=== PATIENT | female | born 2000 | race Caucasian/White ===

== ENCOUNTER 2024-11-30 07:32 | Inpatient (IN) | payer OTHER, SELFPAY ==
[2024-11-30] VITALS (13 sets, daily range): BP systolic 122–144; BP diastolic 67–96; PULSE 81–117; RESP 14–18; TEMP 36.4–36.8; O2SAT 99; BMI 42.4
[2024-11-30 08:59] LABS: Absolute Lymphocyte Count 2.07 X10^3/uL (0.83-4.51); Basophil# 0.02 X10^3/uL; Basophil% 0.2 % (0-1); Eosinophil# 0.06 X10^3/uL; Eosinophils% 0.6 % (0-5); Hematocrit 35.7 % (37-47); Hemoglobin 12.5 g/dL (12.0-15.0); Lymphocyte # 2.07 X10^3/ul (0.83-4.51); Lymphocyte % 20.9 % (19-41); Mean Corpuscular Hgb 30.3 pg (27.0-32.0); Mean Corpuscular Volume 86.4 fL (81-99); Mean Platelet Vol. 9.3 fl (6.2-12.0); Monocyte# 0.69 X10^3/uL; NRBC Flagged by Analyzer 0 % (0-5); Neutrophil # 7.01 X10^3/uL (2.7-7.7); Neutrophil % 70.9 % (47-70); Platelet Count 303 K/mm3 (150-450); RBC Distribution Width CV 12.7 % (11.6-14.6); RBC Distribution Width SD 39.8 fl (35.1-43.9); Red Blood Count 4.13 M/mm3 (4.2-5.4); White Blood Count 9.9 K/mm3 (4.4-11.0)
[2024-11-30] MEDS: 0.9% Saline Lock 10 ML Syringe IV ×2 (09:03→16:38)
[2024-11-30] MEDS: miSOPROStol 25 MCG TABLET VAGINAL ×2 (09:03→13:02)
[2024-11-30 09:35] LABS: ALB/GLOB Ratio 2.1 RATIO (0.9-2.4); AST(SGOT) 20 U/L (<=31); Alanine Aminotransfer ALT/SGPT 17 U/L (<=34); Albumin, Serum 3.4 g/dL (3.5-5.0); Alkaline Phosphatase 182 U/L (35-104); Anion Gap 14 (5-15); BUN 4 mg/dL (4-19); Calcium,Total 8.9 mg/dL (7.6-11.0); Carbon Dioxide 17.3 mmol/L (21.0-32.0); Chloride 106 mmol/L (98-108); Creatinine, Serum 0.48 mg/dL (0.70-1.20); EST Glomerular Filtration Rate 136 (>60); Estimated Creatinine Clearance 231.59 ml/min (50-250); Globulin 1.6 g/dL (2.2-4.2); Glucose 88 mg/dL (70-99); Potassium 3.8 mmol/L (3.3-5.1); Sodium Level 137 mmol/L (133-145); Total Bilirubin 0.35 mg/dL (0.00-1.30)
[2024-11-30 09:41] LABS: Syphilis Antibodies Nonreactive (Nonreactive)
--- NOTE | 2024-11-30 13:11 | PCM.HP.OB ---
HPI - General General Date of Admission: 11/30/24 HPI Narrative CAESAR RUSS, is a 24 F who presents for induction. Maternal Data Information RICHAR Calculator Estimated Delivery Date Method Current WG Current Estimate 12/06/24 Manual 39w 1d [facility] Medical History (Updated 11/30/24 @ 13:[address] Nadine Higuera MD) Obesity macrosomia Anxiety Home Medications ?Medication ?Instructions ?Recorded ?Last Taken ?Type aspirin 81 mg tablet,delayed 81 mg PO DAILY 11/30/24 11/29/24 07:00 History release 81 mg prenat.vits,skip,ysw-rdxv-verus 1 tab PO DAILY 11/30/24 11/29/24 07:00 History 1 TAB Allergy/AdvReac Type Severity Reaction Status Date / Time No Known Allergies Allergy Verified 11/30/24 07:51 Surgical History History of surgery Social History Smoking Status: Never smoker History Elective abortions Hx Para 0 Spontaneous abortions Hx # Term Pregnancies Ectopic pregnancies Hx # Pregnancies Multiple births # of living children Vital Signs Vital Signs Vital Signs: 11/30/24 07:43 11/30/24 07:43 11/30/24 07:43 Temperature Temperature Source Temporal Pulse Rate 93 Respiratory Rate Blood Pressure 143/92 H BP Systolic 143 BP Diastolic 92 11/30/24 07:43 11/30/24 07:43 11/30/24 07:58 Temperature 98.3 F Temperature Source Pulse Rate Respiratory Rate 18 Blood Pressure 142/91 H BP Systolic 142 BP Diastolic 91 11/30/24 07:58 11/30/24 10:20 11/30/24 10:20 Temperature Temperature Source Pulse Rate 85 81 Respiratory Rate Blood Pressure 127/67 H BP Systolic 127 BP Diastolic 67 11/30/24 10:20 11/30/24 10:20 11/30/24 10:20 Temperature 97.6 F L Temperature Source Temporal Pulse Rate Respiratory Rate 16 Blood Pressure BP Systolic BP Diastolic 11/30/24 12:30 11/30/24 12:30 11/30/24 12:30 Temperature 98.2 F Temperature Source Temporal Pulse Rate Respiratory Rate 16 Blood Pressure BP Systolic BP Diastolic 11/30/24 12:44 11/30/24 12:44 Temperature Temperature Source Pulse Rate 96 Respiratory Rate Blood Pressure 142/96 H BP Systolic 142 BP Diastolic 96 Weight Weight: 255 lb 1.197 oz Body Mass Index (BMI) 42.4 Physical Exam Const alert and oriented x3 GI soft to palpation, non-tender and non-distended Inspection: gravid external exam normal Narrative: cvx - 50/-2 Labs Labs Labs: Blood Type A NEGATIVE Antibody Screen NEGATIVE Hct 35.7 % (37-47) L Hgb 12.5 g/dL (12.0-15.0) Syphilis Total Ab Nonreactive (Nonreactive) Assessment & Plan (1) LGA (large for gestational age) fetus: COMMENT: @ 39&1 PLAN: Plan Admit to L&D. Induction - cytotec and then plan for intracervical allred. EFW - LGA but EFW less than 4500g. Recent US reviewed. Patient with adequate pelvis. Polyhydramnios - plan for controled AROM. Pain - epidural as desired. GBS negative. Routine care.
[2024-11-30] MEDS: Lactated Ringers 1,000 ML 50 ML IV (16:38)
[2024-11-30] MEDS: 0.9% Normal Saline Single 100 ML IV.SOLN. INTRA-UTER (17:06)
--- NOTE | 2024-11-30 17:43 | PCM.PN.OB ---
Subjective Subjective Patient feeling some cramps. Objective Data Objective Data Vital Signs: Vital Signs Temp Pulse Resp BP 98.1 F 91 18 144/85 H 11/30/24 16:02 11/30/24 16:02 11/30/24 16:02 11/30/24 16:02 Weight: 255 lb 1.197 oz Body Mass Index (BMI) 42.4 Lab / Micro Data 11/30/24 08:25 11/30/24 08:25 Labs: Laboratory Results - last 24 hr 11/30/24 08:25: WBC 9.9, RBC 4.13 L, Hgb 12.5, Hct 35.7 L, MCV 86.4, MCH 30.3, MCHC 35.0, RDW Std Deviation 39.8, RDW Coeff of Maggie 12.7, Plt Count 303, MPV 9.3, Immature Gran % (Auto) 0.400, Neut % (Auto) 70.9 H, Lymph % (Auto) 20.9, [place] % (Auto) 7.0, Eos % (Auto) 0.6, Baso % (Auto) 0.2, Absolute Neuts (auto) 7.0, Absolute Lymphs (auto) 2.07, Nucleated RBC % 0, Sodium 137, Potassium 3.8, Chloride 106, Carbon Dioxide 17.3 L, Anion Gap 14, BUN 4, Creatinine 0.48 L, Estim Creat Clear Calc 231.59, Est GFR (MDRD) Non-Af 136, BUN/Creatinine Ratio 9.0 L, Glucose 88, Calcium 8.9, Total Bilirubin 0.35, AST 20, ALT 17, Alkaline Phosphatase 182 H, Total Protein 5.0 L, Albumin 3.4 L, Globulin 1.6 L, Albumin/Globulin Ratio 2.1, Syphilis Total Ab Nonreactive, Blood Type A NEGATIVE, Antibody Screen NEGATIVE Physical Exam Const alert, oriented x3 and no apparent distress Narrative: cvx - 2/70/-2, intracervical allred placed NST FHR Rate Baby A Baseline: 135 Variability:: Moderate Accelerations:: 15 x 15 Decelerations:: Variable Uterine Activity:: Irregular Assessment & Plan (1) LGA (large for gestational age) fetus: COMMENT: @ 39&1 (2) Polyhydramnios: QUALIFIERS: Fetus number: single or unspecified fetus Trimester: third trimester Qualified Code(s): O40.3XX0 - Polyhydramnios, third trimester, not applicable or unspecified PLAN: Plan Plan to start pitocin at 6pm
[2024-11-30] MEDS: Oxytocin 15 Units/NS 250ml 15 UNITS/250 ML IV.SOLN 2 UNITS IV (18:21)
[2024-12-01] VITALS (56 sets, daily range): BP systolic 60–147; BP diastolic 47–93; PULSE 94–139; RESP 14–20; TEMP 36.2–38; O2SAT 82–100
[2024-12-01] MEDS: Lactated Ringers 1,000 ML 999 ML IV ×2 (00:48→17:30)
[2024-12-01] MEDS: fentaNYL-bupivacaine (epidural) 100 ML BAG EPIDURAL ×3 (01:58→11:07)
[2024-12-01] MEDS: Lactated Ringers 1,000 ML 200 ML IV ×2 (04:21→08:21)
--- NOTE | 2024-12-01 04:47 | PN.OBGYN_ITS ---
Subjective Subjective Resting in bed, comfortable with epidural. Partner at bedside. Objective Data Objective Data Vital Signs: Vital Signs Temp Pulse Resp BP Pulse Ox 98.8 F 116 H 14 124/75 H 98 12/01/24 04:24 12/01/24 04:24 12/01/24 04:24 12/01/24 04:24 12/01/24 03:32 Weight: 255 lb 1.197 oz Body Mass Index (BMI) 42.4 Intake & Output: Intake and Output for Last 24 Hours 11/29/24 11/30/24 12/01/24 23:59 23:59 23:59 Intake Total 1.07 / 1.07 Balance 1.07 / 1.07 Lab / Micro Data 11/30/24 08:25 11/30/24 08:25 Labs: Laboratory Results - last 24 hr 11/30/24 08:25: WBC 9.9, RBC 4.13 L, Hgb 12.5, Hct 35.7 L, MCV 86.4, MCH 30.3, MCHC 35.0, RDW Std Deviation 39.8, RDW Coeff of Maggie 12.7, Plt Count 303, MPV 9.3, Immature Gran % (Auto) 0.400, Neut % (Auto) 70.9 H, Lymph % (Auto) 20.9, [place] % (Auto) 7.0, Eos % (Auto) 0.6, Baso % (Auto) 0.2, Absolute Neuts (auto) 7.0, Absolute Lymphs (auto) 2.07, Nucleated RBC % 0, Sodium 137, Potassium 3.8, Chloride 106, Carbon Dioxide 17.3 L, Anion Gap 14, BUN 4, Creatinine 0.48 L, Estim Creat Clear Calc 231.59, Est GFR (MDRD) Non-Af 136, BUN/Creatinine Ratio 9.0 L, Glucose 88, Calcium 8.9, Total Bilirubin 0.35, AST 20, ALT 17, Alkaline Phosphatase 182 H, Total Protein 5.0 L, Albumin 3.4 L, Globulin 1.6 L, Albumin/Globulin Ratio 2.1, Syphilis Total Ab Nonreactive, Blood Type A NEGATIVE, Antibody Screen NEGATIVE Physical Exam Manual OB Exam: estimated gestational size large, presentation cephalic, dilated 5.5, effaced 80 and station -2 NST FHR Rate Baby A Baseline: 150 Variability:: Moderate Accelerations:: 15 x 15 Decelerations:: Variable FHR Category:: Category II Uterine Activity:: Every 2-3, moderate Assessment & Plan (1) Encounter for induction of labor: PLAN: Plan 1) Continue with active management, pitocin per protocol 2) Continuous EFM 3) Epidural for pain management 4) SROM 5) Positional changes
[2024-12-01] MEDS: Ondansetron 4 MG/2 ML Vial IV (05:32)
[2024-12-01] MEDS: Acetaminophen 500 MG Tablet 1000 MG PO ×2 (14:10→18:06)
[2024-12-01] MEDS: Sodium Citrate/Citric Acid 30 ML UDC PO (14:12)
--- NOTE | 2024-12-01 14:25 | EX.PCM.OBRPT ---
Maternal Data Information RICHAR Calculator Estimated Delivery Date Method Current WG Current Estimate 12/06/24 Manual 39w 3d Operative Report (OB) Details Procedure Type: low transverse Date of Procedure: 12/01/24 Procedure Start Time: 14:50 Procedure Stop Time: 15:49 Pre-Operative Diagnosis: Failure of Descent Post-Operative Diagnosis: Same as Pre-operative diagnosis Classification: BONNIE Type of Anesthesia: Epidural Antibiotic Given: Ancef 2 grams IV x1 and Zithromax 500 mg/5 mL X1 Drain: Shepherd to straight drain Estimated Blood Loss: 1000ml Fluids Replaced: 1300ml Findings Description of surgery: Patient was induced and began pushing once complete. She pushed effectively for 3 hours with no descent. Patient was counseled on continued pushing for another hour versus proceeding with a section. After shared decision making with patient the plan was to proceed with a primary . Fetus is LGA per recent growth US which supports this decision. The patient was taken to the operating room where epidural anesthesia was dosed. It was not found to be adequate for local 1% lidocaine (10ml) was injection along the incision. She was prepped and draped in the dorsal supine position with a leftward tilt. A Pfannenstiel skin incision was made approximately 2 cm above the symphysis pubis and carried through to the underlying fascia with the scalpel. The fascia was incised incised in the midline and extended laterally with the Durand scissors. The rectus muscles were in the midline and the peritoneum was entered carefully and bluntly. The peritoneal incision was stretched and the bladder blade was inserted. Vesicouterine peritoneum was tented up, incised & then bladder flap created gently. The uterine incision was made in a low transverse fashion with the scalpel and extended superiorly and inferiorly with blunt dissection. The infant's head was grasped and unable to be elevated to the uterine incision. RN elevated head vaginally and still head unable to be elevated to the uterine incision. I went to the other side of the OR table and grasped the infant's head and then was able to bring the head to the incision in the flexed position. The head was gently guided to allow delivery of the anterior and posterior shoulders. The body then delivered with fundal pressure in the standard fashion. The 3VC cord was clamped and cut. The was handed off to the waiting pediatric occupational therapist. The placenta was delivered with fundal massage and gentle traction in the standard fashion. The uterus was exteriorized and cleared of clots and debris. A midline uterine extension was repaired in running locked fashion using #1 Vicryl suture. The uterine incision was then closed with #1 Vicryl suture in a running locked fashion. Monocryl suture was used in an imbricating fashion. The incision was examined and was found to be hemostatic. The bladder was backfilled with 240ml saline with methylene blue which confirmed bladder integrity. The uterus was returned to the abdominal cavity. After irrigating Liseth was placed over the uterine incision as some areas were denuded (but hemostatic). The rectus muscle was examined and any bleeding was Bovie cauterized. The fascia was closed with PDS suture in a running standard fashion. The subcutaneous tissue was examining and any bleeding was Bovie cauterized. The subcutaneous tissue was reapproximated with interrupted sutures. The skin was closed in a subcuticular fashion by the SNUFF MAKER while I was present in the OR. The remainder of the procedure was performed by me with assistance. Surgical findings: normal maternal uterus and adnexa Presentation: Vertex Amniotic Membrane Rupture Type: Spontaneous Amniotic Fluid Description: Clear Placental Delivery Description: Expressed Placenta Disposition: [facility] Specimen collected: No Cord Vessel Description: 3 Vessels Cord Entanglement: None Infant A gender: Female (1 minute): 1 (5 minute): 6 (9 at 10 minutes) Delayed Cord Clamping: No Bd Special Education Teacher director post: Yes Electric Installer: iLz Muir Tasks completed by wheelchair van operator first responder: Opening & closing and Retracting Additional magistrate assistant?: No Complications Complications: No
[2024-12-01] MEDS: Cefazolin 2 GM in 0.9% Normal Saline (100mL Bag) 100 ML IV (14:35)
[2024-12-01] MEDS: Azithromycin 500 MG in 0.9% Normal Saline (250mL Bag) 250 ML 255 MG IV (14:35)
[2024-12-01] MEDS: Cefazolin 2 GM in Syringe 10 ML IV (14:50)
[2024-12-01] MEDS: Ketorolac 30 MG/ML Syringe IV ×2 (16:42→22:26)
[2024-12-01] MEDS: Oxytocin 15 Units/NS 250ml 15 UNITS/250 ML IV.SOLN 83 UNITS IV (16:42)
[2024-12-01 17:58] LABS: Absolute Neutrophil Count 13.6 X10^3/uL (2.0-7.7); Basophil# 0.03 X10^3/uL; Basophil% 0.2 % (0-1); Hematocrit 28.9 % (37-47); Lymphocyte % 6.3 % (19-41); Mean Corp Hgb Conc 34.6 g/dL (32-36); Mean Corpuscular Hgb 30.1 pg (27.0-32.0); Mean Platelet Vol. 9.3 fl (6.2-12.0); Monocyte# 1.25 X10^3/uL; Monocyte% 7.8 % (0-10); NRBC Flagged by Analyzer 0 % (0-5); Neutrophil # 13.61 X10^3/uL (2.7-7.7); Neutrophil % 85.3 % (47-70); POSITIVE MORPHOLOGY YES; Platelet Count 326 K/mm3 (150-450); RBC Distribution Width CV 13.2 % (11.6-14.6); RBC Distribution Width SD 41.6 fl (35.1-43.9); Red Blood Count 3.32 M/mm3 (4.2-5.4)
[2024-12-01 18:06] LABS: Differential Indicated SCAN CRITERIA MET
[2024-12-01] MEDS: HYDROmorphone 1 MG/ML Syringe IV ×2 (18:06→23:24)
[2024-12-01 18:15] LABS: ALB/GLOB Ratio 1.3 RATIO (0.9-2.4); AST(SGOT) 22 U/L (<=31); Alanine Aminotransfer ALT/SGPT 9 U/L (<=34); Albumin, Serum 2.6 g/dL (3.5-5.0); Alkaline Phosphatase 138 U/L (35-104); Anion Gap 13 (5-15); BUN 8 mg/dL (4-19); BUN/Creat Ratio 10.3 RATIO (10-20); Calcium,Total 7.9 mg/dL (7.6-11.0); Carbon Dioxide 16.5 mmol/L (21.0-32.0); Chloride 109 mmol/L (98-108); Creatinine, Serum 0.79 mg/dL (0.70-1.20); EST Glomerular Filtration Rate 109 (>60); Estimated Creatinine Clearance 140.71 ml/min (50-250); Glucose 105 mg/dL (70-99); Potassium 3.9 mmol/L (3.3-5.1); Protein, Total 4.6 g/dL (5.9-8.4); Sodium Level 139 mmol/L (133-145); Total Bilirubin 1.04 mg/dL (0.00-1.30)
[2024-12-01] MEDS: Lactated Ringers 1,000 ML 100 ML IV (22:26)
[2024-12-01] MEDS: Enoxaparin 40 MG/0.4 ML Syringe SC (22:26)
[2024-12-02] VITALS (7 sets, daily range): BP systolic 102–131; BP diastolic 62–74; PULSE 102–146; RESP 16; TEMP 36.3–36.7; O2SAT 96–100
[2024-12-02] MEDS: Acetaminophen 500 MG Tablet 1000 MG PO ×4 (00:43→20:48)
[2024-12-02] MEDS: Ketorolac 30 MG/ML Syringe IV ×2 (05:18→11:34)
[2024-12-02] MEDS: Rho(D) Immune Globulin 300 MCG (1500 Unit) Syringe IV (06:45)
[2024-12-02 06:48] LABS: Hematocrit 22.8 % (37-47); Hemoglobin 7.8 g/dL (12.0-15.0); Mean Corp Hgb Conc 34.2 g/dL (32-36); Mean Corpuscular Volume 87.7 fL (81-99); Mean Platelet Vol. 9.1 fl (6.2-12.0); Platelet Count 210 K/mm3 (150-450); RBC Distribution Width CV 13.5 % (11.6-14.6); RBC Distribution Width SD 43.1 fl (35.1-43.9); White Blood Count 14.5 K/mm3 (4.4-11.0)
[2024-12-02] MEDS: Lactated Ringers 1,000 ML 100 ML IV (06:51)
[2024-12-02] MEDS: Senna/Docusate Sodium 1 Tablet PO ×2 (09:43→16:30)
[2024-12-02] MEDS: oxyCODONE 5 MG Tablet PO ×2 (09:43→20:56)
[2024-12-02] MEDS: Enoxaparin 40 MG/0.4 ML Syringe SC ×2 (09:55→22:52)
--- NOTE | 2024-12-02 10:14 | PN.OBGYN_ITS ---
Subjective Subjective Pain is controlled. Denies concerns. Objective Data Objective Data Vital Signs: Vital Signs Temp Pulse Resp BP Pulse Ox O2 Del Method 97.4 F L 102 H 16 129/62 H 96 Room Air 12/02/24 07:33 12/02/24 07:33 12/02/24 07:33 12/02/24 07:33 12/02/24 07:33 12/02/24 07:33 Oxygen Delivery Method Room Air Weight: 255 lb 1.197 oz Body Mass Index (BMI) 42.4 Intake & Output: Intake and Output for Last 24 Hours 11/30/24 12/01/24 12/02/24 23:59 23:59 23:59 Intake Total 1.07 / 1.07 5427.57 / 5427.57 841.67 / 841.67 Output Total 1900 / 1900 Balance 1.07 / 1.07 3527.57 / 3527.57 841.67 / 841.67 Lab / Micro Data 12/02/24 06:30 12/01/24 17:20 Labs: Laboratory Results - last 24 hr 12/01/24 17:20: WBC 16.0 H, RBC 3.32 L, Hgb 10.0 L, Hct 28.9 L, MCV 87.0, MCH 30.1, MCHC 34.6, RDW Std Deviation 41.6, RDW Coeff of Maggie 13.2, Plt Count 326, MPV 9.3, Immature Gran % (Auto) 0.400, Neut % (Auto) 85.3 H, Lymph % (Auto) 6.3 L, [place] % (Auto) 7.8, Eos % (Auto) 0.0, Baso % (Auto) 0.2, Absolute Neuts (auto) 13.6 H, Absolute Lymphs (auto) 1.00, Nucleated RBC % 0, Sodium 139, Potassium 3.9, Chloride 109 H, Carbon Dioxide 16.5 L, Anion Gap 13, BUN 8, Creatinine 0.79, Estim Creat Clear Calc 140.71, Est GFR (MDRD) Non-Af 109, BUN/Creatinine Ratio 10.3, Glucose 105 H, Calcium 7.9, Total Bilirubin 1.04, AST 22, ALT 9, A lkaline Phosphatase 138 H, Total Protein 4.6 L, Albumin 2.6 L, Globulin 2.0 L, Albumin/Globulin Ratio 1.3 12/01/24 20:42: Screen NEGATIVE, Baby's Blood Type A POSITIVE, Baby's PUJA NEGATIVE 12/02/24 06:30: WBC 14.5 H, RBC 2.60 L, Hgb 7.8 L, Hct 22.8 L, MCV 87.7, MCH 30.0, MCHC 34.2, RDW Std Deviation 43.1, RDW Coeff of Maggie 13.5, Plt Count 210, MPV 9.1 Physical Exam Const alert, oriented x3 and no apparent distress HEENT normocephalic GI soft to palpation, non-tender and non-distended GI Narrative: fundus firm, mid & below umbilicus Incision - bandage c/d/i Extremity normal to inspection and no calf tenderness Assessment & Plan (1) Delivery by section: COMMENT: POD#1 (2) Anemia: QUALIFIERS: Anemia type: unspecified type Qualified Code(s): D 64.9 - Anemia, unspecified PLAN: Plan Heme - start iron for acute blood loss anemia. ID - AF, no signs infection. GI/ - no issues Routine care.
[2024-12-02] MEDS: Ferrous Sulfate 325 MG Tablet PO ×2 (11:35→16:31)
[2024-12-02] MEDS: 0.9% Saline Lock 10 ML Syringe IV (11:36)
--- NOTE | 2024-12-02 12:15 | CASEMGMT ---
Social Work Assessment Labor and Delivery Unit Patient Address:[address] [place] [address] [address] [place] [id number] Phone number: [phone] Date of Referral: 12/01/2024 Time of Referral:? 20:27 Referred By: Nadine Higuera Date of Intervention: 12/02/2024 Time of Intervention: 12:15 Reason for Referral: Anxiety History obtained from: Medical records and mother of baby (MOB). ? Household composition: MOB, father of baby (FOB; Collin, age 24) and their daughter Mundo, born on 12/01/2024. Patient's parent/guardian status:? ?MOB and FOB have been together for almost 7 years and are . ?MOB described a very positive and supportive relationship with the FOB and denied any previous or current domestic violence. Neither the MOB or the FOB have any other children. Medical History: ?: 1, Para, now 1. MOB received PNC through [facility] [place] beginning at 7 weeks and 1 day. Visits were observed to be routine. Apgars: 1,6 and 9. Weight: 9 pounds, 6 ounces. Optical Laboratory Mechanic: [place] although MOB reported she might possibly switch over to [facility] in [place]. ? Educational Status: MOB denied any issues or concerns with reading or writing with herself or with the FOB. MOB earned an Associate?s degree in nursing and the FOB earned his High School diploma. Financial Status: MOB reported the household income is sufficient to meet the needs of her family at this time. 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 VIN is taking 12 weeks of maternity leave. Supplies: VIN reported she has all of the supplies she needs for baby at this time including but not limited to: Car seat, bassinet, crib, diapers, bottles, breast pump and clothing. Childcare/Caregiver(s):? The FOB will provide childcare for during the times the MOB is at work and ?s maternal grandmother (MGM), paternal grandmother (PGM), maternal aunt and paternal aunt will all take turns providing childcare during the times the MOB is sleeping during the day. Transportation:? MOB reported she and the FOB are both licensed drivers with a reliable vehicle to take baby to and from all medical appointments. No transportation issues identified. Programs/Agencies Involved: MOB denied any current programs or agencies involved at this time. ??? Children Services/Legal Issues:? Denied. Behavioral Health Issues: ??Mental Health History: MOB reported she had anxiety during the time she was in nursing school and described current symptoms as ?mild? and successfully managed without medication. MOB denied any MHH with the FOB. ???Substance Use History: MOB reported she and the FOB drink on occasion but deny intoxication. MOB denied any other history or current drug use and/or abuse either with herself or with the FOB. ???Family History:? MOB denied any family history of drug or alcohol abuse or mental health on her side or the FOB?s side of the family. ?Drug Screens: ?None obtained for the MOB or baby. Family/Social Stressors: Denied Support Systems: Ample. VIN identified her biggest support as the FOB as well as the MGM, PGM and ?s maternal aunt. ?? Depression/Shaken Baby/Safe Sleeping: general office worker provided verbal and written education on PPD, Safe Sleeping and Shaken Baby.? General Internist And Physician Leader provided verbal education about increased risk factors for PPD. MOB verbalized an understanding. ??? ASSESSMENT:? MOB provided consent to social work visit. When social work program coordinator arrived, the MOB was sitting upright in the hospital bed pumping. MOB stated she?s doing everything she can think of to help her breastmilk come in. Baby is currently in the special care nursery due to low blood sugars.? MOB was very cooperative, engaged and talked about nicknames she and the FOB have for already. MOB stated they have a ?village? and denied any current stressors/outstanding needs. MOB denied any unmanaged mental health concerns or drug or alcohol abuse either with herself or with the FOB. MOB denied any previous or current domestic violence with the FOB. Safe Plan of Care for related to substance use: N/A; not needed. ? PLAN:? Baby to be discharged home.? general office worker also provided written information on depression, depression resources and Help Me Grow. ?No other services requested or indicated. Milly Moser, BREAD PANNER, TAMPING MACHINE OPERATOR
[2024-12-02] MEDS: Ibuprofen 600 MG Tablet PO ×2 (16:30→22:52)
--- NOTE | 2024-12-02 17:05 | EKG12_ITS ---
Test Reason : Blood Pressure : */* mmHG Vent. Rate : 129 BPM Atrial Rate : 129 BPM P-R Int : 146 ms QRS Dur : 86 ms QT Int : 302 ms P-R-T Axes : 52 75 31 degrees QTcB Int : 442 ms Sinus tachycardia Otherwise normal ECG No previous ECGs available Confirmed by RAYMOND KAMINSKI, MAGGIE ([id number]), video effects editor TALA DICKERSON ([id number]) on 12/06/2024 1:36:36 PM Referred By: Nadine Higuera Confirmed By: MAGGIE ANDRADE MD
--- NOTE | 2024-12-02 17:24 | PN.OBGYN_ITS ---
Subjective Subjective Pain is controlled. She denies CP/SOB. Objective Data Objective Data Vital Signs: Vital Signs Temp Pulse Resp BP Pulse Ox O2 Del Method 98.1 F 146 H 16 131/65 H 98 Room Air 12/02/24 16:33 12/02/24 16:40 12/02/24 16:40 12/02/24 16:40 12/02/24 16:40 12/02/24 16:40 Oxygen Delivery Method Room Air Weight: 255 lb 1.197 oz Body Mass Index (BMI) 42.4 Intake & Output: Intake and Output for Last 24 Hours 11/30/24 12/01/24 12/02/24 23:59 23:59 23:59 Intake Total 1.07 / 1.07 5427.57 / 5427.57 1675.36 / 1675.36 Output Total 1900 / 1900 Balance 1.07 / 1.07 3527.57 / 3527.57 1675.36 / 1675.36 Lab / Micro Data 12/02/24 06:30 12/01/24 17:20 Labs: Laboratory Results - last 24 hr 12/01/24 17:20: WBC 16.0 H, RBC 3.32 L, Hgb 10.0 L, Hct 28.9 L, MCV 87.0, MCH 30.1, MCHC 34.6, RDW Std Deviation 41.6, RDW Coeff of Maggie 13.2, Plt Count 326, MPV 9.3, Immature Gran % (Auto) 0.400, Neut % (Auto) 85.3 H, Lymph % (Auto) 6.3 L, [place] % (Auto) 7.8, Eos % (Auto) 0.0, Baso % (Auto) 0.2, Absolute Neuts (auto) 13.6 H, Absolute Lymphs (auto) 1.00, Nucleated RBC % 0, Sodium 139, Potassium 3.9, Chloride 109 H, Carbon Dioxide 16.5 L, Anion Gap 13, BUN 8, Creatinine 0.79, Estim Creat Clear Calc 140.71, Est GFR (MDRD) Non-Af 109, BUN/Creatinine Ratio 10.3, Glucose 105 H, Calcium 7.9, Total Bilirubin 1.04, AST 22, ALT 9, A lkaline Phosphatase 138 H, Total Protein 4.6 L, Albumin 2.6 L, Globulin 2.0 L, Albumin/Globulin Ratio 1.3 12/01/24 20:42: Screen NEGATIVE, Baby's Blood Type A POSITIVE, Baby's PUJA NEGATIVE 12/02/24 06:30: WBC 14.5 H, RBC 2.60 L, Hgb 7.8 L, Hct 22.8 L, MCV 87.7, MCH 30.0, MCHC 34.2, RDW Std Deviation 43.1, RDW Coeff of Maggie 13.5, Plt Count 210, MPV 9.1 Physical Exam Const alert, oriented x3 and no apparent distress HEENT normocephalic GI soft to palpation, non-tender and non-distended GI Narrative: fundus firm, mid & below umbilicus Incision - bandage c/d/i Extremity normal to inspection and no calf tenderness Assessment & Plan (1) Tachycardia: (2) Anemia: QUALIFIERS: Anemia type: unspecified type Qualified Code(s): D 64.9 - Anemia, unspecified (3) Delivery by section: COMMENT: POD#1 PLAN: Plan Normal EKG. Patient asymptomatic with tachycardia that is likely from acute blood loss anemia. Plan for repeat CBC in AM.
[2024-12-03] MEDS: oxyCODONE 5 MG Tablet PO ×4 (01:08→19:57)
[2024-12-03] MEDS: Acetaminophen 500 MG Tablet 1000 MG PO ×4 (02:53→21:25)
[2024-12-03 02:54] VITALS: BP 124/69; PULSE 110; RESP 16; TEMP 36.2; O2SAT 97
[2024-12-03] MEDS: Ibuprofen 600 MG Tablet PO ×4 (04:37→21:59)
[2024-12-03 04:56] LABS: Absolute Neutrophil Count 8.8 X10^3/uL (2.0-7.7); Basophil# 0.02 X10^3/uL; Basophil% 0.2 % (0-1); Eosinophil# 0.17 X10^3/uL; Eosinophils% 1.4 % (0-5); Hemoglobin 6.7 g/dL (12.0-15.0); Lymphocyte % 15.1 % (19-41); Mean Corp Hgb Conc 33.5 g/dL (32-36); Mean Corpuscular Hgb 29.9 pg (27.0-32.0); Mean Corpuscular Volume 89.3 fL (81-99); Mean Platelet Vol. 9.1 fl (6.2-12.0); Monocyte# 0.95 X10^3/uL; NRBC Flagged by Analyzer 0 % (0-5); Neutrophil # 8.84 X10^3/uL (2.7-7.7); Neutrophil % 74.4 % (47-70); Platelet Count 250 K/mm3 (150-450); RBC Distribution Width CV 13.5 % (11.6-14.6); RBC Distribution Width SD 43.8 fl (35.1-43.9); Red Blood Count 2.24 M/mm3 (4.2-5.4); White Blood Count 11.9 K/mm3 (4.4-11.0)
--- NOTE | 2024-12-03 05:49 | NURSING ---
This RN notified Dr. Higuera of hemoglobin level of 6.7. Per MD, give 1 dose of IV iron, Venofer 200 mg x1. RN will continue to monitor patient. Tamar White RN
[2024-12-03 07:50] VITALS: BP 127/70; PULSE 121; RESP 16; TEMP 36.6
[2024-12-03] MEDS: 0.9% Saline Lock 10 ML Syringe IV (07:56)
[2024-12-03] MEDS: Sodium Ferric Gluconat 250 MG in 0.9% Normal Saline 250 ML 135 MG IV (07:56)
--- NOTE | 2024-12-03 08:24 | PN.OBGYN_ITS ---
Subjective Subjective Doing well. Ambulating and voiding without difficulty. Mild lochia. Breast feeding. Objective Data Objective Data Vital Signs: Vital Signs Temp Pulse Resp BP Pulse Ox O2 Del Method 97.8 F 121 H 16 127/70 H 97 Room Air 12/03/24 07:50 12/03/24 07:50 12/03/24 07:50 12/03/24 07:50 12/03/24 02:54 12/03/24 02:54 Oxygen Delivery Method Room Air Weight: 115.7 kg Body Mass Index (BMI) 42.4 Intake & Output: Intake and Output for Last 24 Hours 12/01/24 12/02/24 12/03/24 23:59 23:59 23:59 Intake Total 5427.57 / 5427.57 1675.36 / 1675.36 Output Total 1900 / 1900 Balance 3527.57 / 3527.57 1675.36 / 1675.36 Lab / Micro Data 12/03/24 04:45 12/01/24 17:20 Labs: Laboratory Results - last 24 hr 12/03/24 04:45: WBC 11.9 H, RBC 2.24 L, Hgb 6.7 L, Hct 20.0 L, MCV 89.3, MCH 29.9, MCHC 33.5, RDW Std Deviation 43.8, RDW Coeff of Maggie 13.5, Plt Count 250, MPV 9.1, Immature Gran % (Auto) 0.900, Neut % (Auto) 74.4 H, Lymph % (Auto) 15.1 L, [place] % (Auto) 8.0, Eos % (Auto) 1.4, Baso % (Auto) 0.2, Absolute Neuts (auto) 8.8 H, Absolute Lymphs (auto) 1.80, Nucleated RBC % 0 ROS Constitutional Constitutional: Denies headache(s) Cardiovascular Cardiovascular: Denies chest pain or dyspnea Gastrointestinal Gastrointestinal: Denies nausea or vomiting Genitourinary Genitourinary: Denies dysuria Physical Exam Const alert, oriented x3 and no apparent distress General Appearance: cooperative and comfortable Eyes PERRL and EOMs intact bilaterally Resp normal respiratory effort GI soft to palpation and non-tender GI Narrative: soft, moderate distention, fundus firm, appropriately tender. Abdominal bandage clean dry and intact Uterus Palpation: uterus fundus firm ( below umbilicus) Extremity normal to inspection and full ROM Neuro oriented x3 and CN's II-XII intact bilaterally Psych mental status grossly normal Assessment & Plan (1) Delivery by section: COMMENT: POD#2 (2) Anemia: QUALIFIERS: Anemia type: unspecified type Qualified Code(s): D 64.9 - Anemia, unspecified PLAN: Currently getting IV iron PLAN: Plan Anticipate discharge tomorrow
[2024-12-03] MEDS: Senna/Docusate Sodium 1 Tablet PO (09:37)
[2024-12-03] MEDS: Enoxaparin 40 MG/0.4 ML Syringe SC ×2 (09:38→21:59)
[2024-12-03] MEDS: Ferrous Sulfate 325 MG Tablet PO ×2 (12:19→15:59)
[2024-12-03 16:06] VITALS: BP 136/73; PULSE 116; RESP 16; TEMP 36.8; O2SAT 99
[2024-12-03 19:47] VITALS: BP 135/87; PULSE 129; RESP 16; TEMP 36.8; O2SAT 98
[2024-12-04 02:49] VITALS: BP 136/78; PULSE 115; RESP 16; TEMP 36.7; O2SAT 100
[2024-12-04] MEDS: Acetaminophen 500 MG Tablet 1000 MG PO ×2 (02:54→09:05)
[2024-12-04] MEDS: Ibuprofen 600 MG Tablet PO ×2 (04:04→09:04)
--- NOTE | 2024-12-04 06:17 | PCM.PN.OB ---
Subjective Subjective Doing well. Ambulating and voiding without difficulty. Mild lochia. Breast feeding. Objective Data Objective Data Vital Signs: Vital Signs Temp Pulse Resp BP Pulse Ox O2 Del Method 98.1 F 115 H 16 136/78 H 100 Room Air 12/04/24 02:49 12/04/24 02:49 12/04/24 02:49 12/04/24 02:49 12/04/24 02:49 12/04/24 02:49 Oxygen Delivery Method Room Air Weight: 115.7 kg Body Mass Index (BMI) 42.4 Intake & Output: Intake and Output for Last 24 Hours 12/02/24 12/03/24 12/04/24 23:59 23:59 23:59 Intake Total 1675.36 / 1675.36 270 / 270 Balance 1675.36 / 1675.36 270 / 270 Lab / Micro Data 12/03/24 04:45 12/01/24 17:20 ROS Constitutional Constitutional: Denies headache(s) Cardiovascular Cardiovascular: Denies chest pain or dyspnea Gastrointestinal Gastrointestinal: Denies nausea or vomiting Genitourinary Genitourinary: Denies dysuria Physical Exam Const alert, oriented x3 and no apparent distress General Appearance: cooperative and comfortable Eyes PERRL and EOMs intact bilaterally Resp normal respiratory effort GI soft to palpation and non-tender GI Narrative: soft, moderate distention, fundus firm, appropriately tender. Abdominal bandage clean dry and intact Uterus Palpation: uterus fundus firm ( below umbilicus) Extremity normal to inspection and full ROM Neuro oriented x3 and CN's II-XII intact bilaterally Psych mental status grossly normal Assessment & Plan (1) Anemia: QUALIFIERS: Anemia type: unspecified type Qualified Code(s): D64.9 - Anemia, unspecified PLAN: S/p IV iron Asymptomatic (2) Delivery by section: COMMENT: POD#3 PLAN: Plan Baby in [facility]. Discharge to [facility] status
--- NOTE | 2024-12-04 06:18 | PCM.DC.SUM ---
Providers Date of Admission: 11/30/24 Date of Discharge: 12/04/24 Primary Care Physician: Hyun Primary Care Phys Reason For Visit: PRIMARY Diagnosis Discharge Diagnosis (1) Anemia: Status: Acute Code(s): D64.9 - Anemia, unspecified Qualifiers: Anemia type: unspecified type Qualified Code(s): D64.9 - Anemia, unspecified Plan: S/p IV iron Asymptomatic (2) Delivery by section: Status: Acute Plan Baby in [facility]. Discharge to hotel status Medications at Discharge Home Medications prenat.vits,skip,hti-[id number] 1 tab PO DAILY 11/30/24 oxycodone 5 mg tablet 5 mg PO Q4H PRN PRN Pain Score 4-10 3 days #20 tabs 12/04/24 Hospital Course Operations section Procedures None Summary of Care Provided Minutes Spent on Discharge: 20 Hospital Course: IOL with polyhydramnios and suspected LGA. PCS after 3 hours of pushing. Physical Exam Const alert General Appearance: cooperative GI GI Narrative: soft, moderate distention, fundus firm, appropriately tender. Abdominal bandage clean dry and intact Weight / BMI Weight Weight: 115.7 kg Body Mass Index (BMI) 42.4 ABG / Lab / Microbiology Data 12/03/24 04:45 12/01/24 17:20 D/C Instructions Discharge Diet: No restrictions May resume sexual activity in: 4-6 weeks Lifting Restrictions: 20 pounds Additional Activity Instructions: Nothing in the vagina for 4-6 weeks. You may return to work/school in 6 weeks. Call your doctor if your incision/area has: Continuous Slow Oozing, Sudden Increased Bleeding, Increased Pain/ Swelling, Increased Redness and Foul Smelling Discharge Call your doctor if you observe: Fever of 101 or Higher and Using more than 1 pad per hour (for 2 hours) Suture Line Care: Avoid Pulling/Pushing and Avoid Pinching/Bending Cleanse incision/area with: Keep Dressing Clean & Dry DC O2, CPAP, BIPAP Needs Home O2 Discharge instructions: No DC home with Oxygen: No Please Follow Up With: Amelia Maier MD When: Call to make an appointment for an incision check in 1-2 [id number]. You will need a post check in 6 weeks. Meaningful Use Info Meaningful Use Meaningful Use Diagnoses (Choose all that apply): None applicable Ischemic Stroke Statin Dosing Therapy Reference: STATIN DOSE THERAPY REFERENCE: * Patients > 75 years receive moderate or high dose statin therapy. * Patients 75 years or YOUNGER should receive HIGH intensity statin dose unless contraindicated. You will be required to document reason for non-treatment if statin daily dose does not meet guidelines. HIGH DOSE STATIN THERAPY DAILY Atorvastatin > than or = to 40 mg Rosuvastatin > than or = to 20 mg Amlodipine + Atorvastatin > than or = to 2.5/40 mg Ezetimibe + Simvastatin 10/80 mg Simvastatin 80mg Discharge Plan Admission Admit Date/Time: 11/30/24 07:32 Primary Reason for Your Visit: labor Attending Provider: Nadine Higuera Primary Care Provider: Care PhysicianHyun Primary Discharge Orders/Prescriptions Prescriptions: New oxycodone 5 mg Tablet 5 mg PO Q4H PRN PRN (Reason: Pain Score 4-10) 3 Days Qty: 20 0RF Continued prenat.vits,skip,xik-usei-wrjrw Tablet 1 tab PO DAILY Discontinued aspirin 81 mg tablet,delayed release (DR/EC) 81 mg PO DAILY Referrals / Follow Up: Care Physician,No Primary [Primary Care Provider] - Disposition Disposition (needs filled in before D/C Order can be placed): Home, Self Care
[2024-12-04 08:00] VITALS: BP 123/76; PULSE 121; RESP 16; TEMP 36.7; O2SAT 100
[2024-12-04] MEDS: Senna/Docusate Sodium 1 Tablet PO (09:04)
[2024-12-04] MEDS: Enoxaparin 40 MG/0.4 ML Syringe SC (09:04)
--- NOTE | 2024-12-11 14:25 | NURSING ---
Follow up phone call made, doing well. Still having some pain from c/s incision but overall doing well. Denies any problems with bleeding, headaches, or visual disturbances. Patient does states she has had some Baby Blues, encouraged her to call her OB. States is going well and that Karlee is eating every 3-4 hours. Encouraged patient to nurse every 2-3 hours until Karlee is back to weight and at least 2 weeks of age, states understanding.
== END 2024-12-04 10:15 | disposition home or self-care (01) | DRG 787 ==
PROVIDERS: Obstetrics & Gynecology; Admitting Provider Obstetrics & Gynecology; Referring Provider Obstetrics & Gynecology; Visit Provider Obstetrics & Gynecology
DX: O36.63X0 Maternal care for excessive fetal growth, third trimester, not applicable or unspecified (principal); D62 Acute posthemorrhagic anemia; O40.3XX0 Polyhydramnios, third trimester, not applicable or unspecified; O99.214 Obesity complicating childbirth; Z37.0 Single live birth; O76 Abnormality in fetal heart rate and rhythm complicating labor and delivery; O62.1 Secondary uterine inertia; O90.81 Anemia of the puerperium; Z3A.39 39 weeks gestation of pregnancy
CPT/HCPCS: 59025; 59050; 80053; 85025; 85027; 85461; 86780; 86850; 86900; 86901; 90384; 93005; 99221; A4216; G0378; J2405; J2790; J2791; J2916